=== PATIENT | female | born 1960 | race Caucasian/White ===

== ENCOUNTER 2021-09-27 09:05 | Day surgery (SDC) | payer MEDICAID, SELFPAY ==
[2021-09-21 11:05] VITALS: BMI 48.6
[2021-09-27] VITALS (10 sets, daily range): BP systolic 117–140; BP diastolic 51–89; PULSE 53–76; RESP 15–18; TEMP 36.2–36.4; O2SAT 96–100
--- NOTE | 2021-09-27 10:42 | HO.ANESPROP2 ---
FORM[facility]LY [facility] Past Medical History Medical History Anxiety Asthma COVID-19 vaccine series completed Diabetes Elevated cholesterol GERD (gastroesophageal reflux disease) HTN (hypertension) Inner ear disease Morbid obesity Osteoarthritis Sleep apnea TMJ arthritis Surgical History Surgical History H/O colonoscopy History of bilateral cataract extraction History of History of Problems with Anesthesia: No Social History Social History Patient Tobacco Use Status: Never used Tobacco Use of substances other than those prescribed or required for medical reasons: No Are you DNR?: No Advance Directives: No Advance Directives Information Provided: Yes Meds Allergies Allergy/AdvReac Type Severity Reaction Status Date / Time cefadroxil [From Duricef] Allergy Unknown Verified 09/27/21 10:27 hydrocodone Allergy Unknown Verified 09/27/21 10:27 lactose Allergy Unknown Verified 09/27/21 10:27 Sulfa (Sulfonamide Allergy Unknown Verified 09/27/21 10:27 Antibiotics) Active Medications: Current Medications Albuterol Sulfate (Albuterol Sulfate (0.083%) 2.5 Mg/3 Ml Vial.Neb) 2.5 mg INHALE ONCE PRN PRN Reason: Shortness of Breath/Wheezing Lactated Ringer's (Lr) 1,000 mls @ 50 mls/hr IVCONT .Q20H CEZAR Home Medications Medication Instructions Recorded Confirmed Last Taken Type albuterol sulfate 90 mcg/actuation 1 inh INHALATION QID PRN 09/21/21 09/21/21 09/27/21 06:00 History aerosol inhaler (Ventolin HFA) cholecalciferol (vitamin D3) 50 50 mcg PO DAILY 09/21/21 09/21/21 Unknown History mcg (2,000 unit) capsule (Vitamin D3) cyanocobalamin (vitamin B-12) 50 50 mcg PO DAILY 09/21/21 09/21/21 Unknown History mcg tablet (Vitamin B-12) dulaglutide 0.75 mg/0.5 mL 0.75 mg SUBCUT QWEEK 09/21/21 09/21/21 Unknown History subcutaneous [facility] esomeprazole magnesium 20 mg 20 mg PO DAILY 09/21/21 09/21/21 09/27/21 06:00 History capsule,delayed release (Nexium) fluticasone propionate 110 2 puff INHALATION BID 09/21/21 09/21/21 09/27/21 06:00 History mcg/actuation HFA aerosol inhaler insulin glargine 100 unit/mL 30 unit SUBCUT BEDTIME 09/21/21 09/21/21 Unknown History subcutaneous solution (Lantus U-100 Insulin) losartan 50 mg tablet 50 mg PO DAILY 09/21/21 09/21/21 Unknown History magnesium oxide 500 mg tablet 500 mg PO DAILY 09/21/21 09/21/21 Unknown History melatonin 5 mg tablet 5 mg PO BEDTIME 09/21/21 09/21/21 Unknown History metformin 1,000 mg tablet 1,000 mg PO DAILY 09/21/21 09/21/21 Unknown History fexofenadine 180 mg tablet 180 mg PO DAILY 09/27/21 09/27/21 Unknown History triamcinolone acetonide 0.1 % 1 appl TOPICAL BID 09/27/21 09/27/21 Unknown History topical ointment Exam Exam Date and Time: September 27, 2021 1042 Height,Weight and Vital Signs: Height 5 ft 1 in Weight 116.7 kg Airway Mallampati Class: II TM Dist: >3cm Neck ROM: Limited Loose/Missing/Broken Teeth: Yes, Upper and Lower Heart: RRR Lungs: CTA Assessment and Plan Assessment Anesthesia Assessment: Anesthesia Plan Discussed and Chart Reviewed Final Anesthetic Review History of Problems with Anesthesia: No NPO: Yes ASA Class: III Final Preanesthetic Review: Meds/Allgs Chart Reviewed, Consent Obtained/Reviewed and Anes Risks/Benef Reviewed Patient Risk: Intermediate Procedure Risk: Low Anesthetic Plan Anesthetic Plan: GA Disposition: Standard PACU
[2021-09-27 11:06] LABS: Glucose, Whole Blood 155 mg/dL (60-115)
--- NOTE | 2021-09-27 12:19 | HO.OPHTHAL ---
Ophthalmology Operative Note Date of Service: 09/27/21 Narrative: Diagnosis 1. Exotropia 2. Left hypertropia. Procedures 1. Bilateral lateral rectus recessions of 8 mm 2. Recession of left superior rectus muscle [address] Lockett anesthesia general complications none. The patient was brought to the operating room placed under general anesthesia. The patient's eyes were prepped and draped in the usual sterile ophthalmic fashion. A lid speculum was placed in the right eye and a peritomy was created around the lateral rectus muscle. The muscle was hooked and secured with a double-armed Vicryl suture. It was then disinserted from the globe and reattached to a position 8 mm behind the original insertion. Conjunctiva was closed with interrupted Vicryl sutures. Lid speck was then transferred to the left eye where an identical procedure was then done on the lateral rectus muscle. The superior rectus muscle was then hooked and secured with a double-armed Vicryl suture. It was then disinserted from the globe and reattached to a position 2 mm behind its original insertion using a hang back technique. Conjunctiva was closed with interrupted Vicryl sutures. The patient was then awoken from general anesthesia and discharged to postoperative recovery in good condition.
[2021-09-27] MEDS: Acetaminophen 325 MG TABLET 650 MG PO (13:00)
[2021-09-27] MEDS: oxyCODONE HCl Immed Release 5 MG TABLET PO (13:14)
[2021-09-27] MEDS: fentaNYL citrate/PF 100 MCG/2 ML VIAL 25 MCG IVPUSH ×2 (13:15→13:23)
== END 2021-09-27 14:44 | disposition home or self-care (01) ==
PROVIDERS: PCP Physician Assistant; Visit Provider Ophthalmology
PROC: (CPT 67311; principal; 2021-09-27 11:00)
DX: H50.10 Unspecified exotropia (principal); H50.22 Vertical strabismus, left eye; H53.2 Diplopia; F41.1 Generalized anxiety disorder; J45.909 Unspecified asthma, uncomplicated; E11.9 Type 2 diabetes mellitus without complications; E78.5 Hyperlipidemia, unspecified; I10 Essential (primary) hypertension; G47.33 Obstructive sleep apnea (adult) (pediatric); E66.01 Morbid (severe) obesity due to excess calories; Z68.42 Body mass index [BMI] 45.0-49.9, adult; Z79.51 Long term (current) use of inhaled steroids; Z79.4 Long term (current) use of insulin; Z79.899 Other long term (current) drug therapy; Z88.8 Allergy status to other drugs, medicaments and biological substances
CPT/HCPCS: 67311; 67314; 82947; J2250; J2405; J3010